=== PATIENT | male | born 1985 | race Caucasian/White ===

== ENCOUNTER 2023-10-13 08:05 | Emergency (ER) | payer OTHER ==
[~2023-10-13] VITALS: Ht 188 cm; Wt 97.7 kg
[2023-10-13 08:14] VITALS: TEMP 97.7
[2023-10-13] MEDS ORDERED: FLUORESCEIN SODIUM 1 MG STRIP ONE (08:36)
[2023-10-13 08:43] VITALS: BP 108/64; PULSE 67; RESP 16
[2023-10-13] MEDS: SULFACETAMIDE SODIUM 10% 15 ML OPHTHALMIC SOLUTION OS ONE (09:28)
[2023-10-13] MEDS: ERYTHROMYCIN 0.5% 3.5 GM TUBE OPHTHALMIC OINTMENT OS ONE (09:28)
== END 2023-10-13 09:42 | disposition home or self-care (01) ==
LOC: EMS 08:05
DX: H10.89 Other conjunctivitis (principal)
CPT/HCPCS: 99283